=== PATIENT | male | born 2000 | race African-American/Black ===

== ENCOUNTER 2020-04-15 03:06 | Emergency (ER) | payer OTHER ==
[2020-04-15 03:35] VITALS: BMI 23.1
[2020-04-15] MEDS ORDERED: KETOROLAC TROMETHAMINE 60 MG/2 ML VIAL IM ONE (06:08)
[2020-04-15] MEDS ORDERED: KETOROLAC TROMETHAMINE 60 MG/2 ML VIAL ONE (06:10)
[2020-04-15] MEDS ORDERED: LIDOCAINE 5% TOPICAL PATCH TP ONE (06:12)
[2020-04-15] MEDS ORDERED: morphine CARPU-JECT 2 MG/1 ML DISP.SYRIN IM ONE (06:13)
[2020-04-15] MEDS ORDERED: LIDOCAINE 5% TOPICAL PATCH ONE (06:20)
[2020-04-15] MEDS ORDERED: MORPHINE SULFATE 2 MG/ML VIAL ONE (06:20)
[2020-04-15 06:31] VITALS: PULSE 81
[2020-04-15] MEDS ORDERED: DIPHTH,PERTUSS(ACELL),TET 0.5 ML DISP.SYRIN IM ONE ×2 (07:11→07:37)
[2020-04-15 08:01] VITALS: BP 106/74; TEMP 98
[2020-04-15] MEDS ORDERED: LIDOCAINE PATCH REMOVAL MC SCH (22:00)
== END 2020-04-15 08:02 | disposition home or self-care (01) ==
LOC: JER 03:06
PROC: 3E023NZ Introduction of Analgesics, Hypnotics, Sedatives into Muscle, Percutaneous Approach (ICD-10-PCS; principal; 2020-04-15)
PROC: 3E023GC Introduction of Other Therapeutic Substance into Muscle, Percutaneous Approach (ICD-10-PCS; 2020-04-15)
PROC: 3E0234Z Introduction of Serum, Toxoid and Vaccine into Muscle, Percutaneous Approach (ICD-10-PCS; 2020-04-15)
DX: S70.02XA Contusion of left hip, initial encounter (principal); S61.012A Laceration without foreign body of left thumb without damage to nail, initial encounter
CPT/HCPCS: 73523-TC-FY; 73552-TC-LT-FY; 90471; 90715; 96372; 99285-25